=== PATIENT | male | born 1995 | race Caucasian/White ===

== ENCOUNTER 2025-06-16 08:20 | Outpatient (CLI) | payer BC, SELFPAY ==
--- OUTSIDE RECORDS SUMMARY | 2025-06-16 08:24 | XMS_ITS | Clinical Summary ---
Author Organization [facility] Address [address] [place] [id number] Care Team Providers Care Animal Services Officer Name Role Phone None, Provider MD Primary Care Provider Unavaila ble Allergies No known active allergies Social History Tobacco Use Types Packs/Day Years Used Date Smoking Tobacco: Never Assessed Sex and Gender Information Value Date Recorded Sex Assigned at Not on file Legal Sex Male 2:07 PM CDT Gender Identity Not on file Sexual Orientation Not on file Last Filed Vital Signs Vital Sign Reading Time Taken Comments Blood Pressure 118/77 05/02/2022 7:47 PM CDT Pulse 82 05/02/2022 7:47 PM CDT Temperature 37.1 C (98.8 F) 05/02/2022 7:47 PM CDT Respiratory Rate 18 05/02/2022 7:47 PM CDT Oxygen Saturation 100% 05/02/2022 7:47 PM CDT Inhaled Oxygen Concentration - - Weight 65.3 kg (144 lb) 05/02/2022 7:47 PM CDT Height 177.8 cm (5' 10) 05/02/2022 7:47 PM CDT Body Mass Index 20.66 05/02/2022 7:47 PM CDT Plan of Treatment Health Maintenance Due Date Last Done Comments Annual Physical 2000 DTaP, Tdap and Td Vaccines (6 - Tdap) 2008 12/13/2002, 03/22/1999, 03/29/1998, Additional history exists Hepatitis C 2015 Hepatitis B Vaccines (1 of 3 - 19+ 3-dose series) 2016 COVID-19 Vaccine (2023- season) 2024 HPV Vaccines (1 - 3-dose SCDM series) 2024 Meningococcal B Vaccine Aged Out No l onger eligible based on patient's age to complete this topic Meningococcal Vaccine Aged Out No reji lilly eligible based on patient's age to complete this topic Pneumococcal Vaccine: Pediatrics (0 to 5 Years) and At-Risk Patients (6 to 49 Years) Aged Out No longer eligible based on patient's age to complete this topic RSV Immunizations Under 20 Months Aged Out No longer eligible based on patient's age to complete this topic Insurance [facility] Care Teams Animal Services Officer Relationship Specialty Start Date End Date None, Provider, PCP - General 03/05/21
--- OUTSIDE RECORDS SUMMARY | 2025-06-16 08:24 | XMS_ITS | Clinical Summary ---
Author Organization [facility] Address [address] [place] [phone] Care Team Providers Care Keller Machine Operator Name Role Phone Maya Souza MD Primary Care Provider + Allergies No known active allergies Medications No known medications Active Problems No known active problems Social History Tobacco Use Types Packs/Day Years Used Date Smoking Tobacco: Never Smokeless Tobacco: Never Tobacco Cessation:Counseling Given: Not Answered AUDIT-C Answer Date Recorded Q1: How often do you have a drink containing alcohol? Never 10/21/2024 Q2: How many drinks containi ng alcohol do you have on a typical day when you are drinking? Patient does not drink Q3: How often do you have si x or more drinks on one occasion? 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 Gender Identity Not on file Sexual Orientation Not on file Obstetrics History Last Filed Vital Signs Vital Sign Reading Time Taken Comments Blood Pressure - - Pulse - - Temperature - - Respiratory Rate - - Oxygen Saturation - - Inhaled Oxygen Concentration - - Weight 66.7 kg (147 lb) 10/21/2024 2:21 PM DISTILLERY SUPERVISOR Height 180.3 cm (5' 11) 10/21/2024 2:21 PM DISTILLERY SUPERVISOR Body Mass Index 20.5 10/21/2024 2:21 PM DISTILLERY SUPERVISOR Plan of Treatment Health Maintenance Due Date Last Done Comments Depression Screening 1997 Hepatitis C Screening 1997 Regular Well Visit/Exam 18-64 2015 HPV Vaccines (1 - 3-dose SCDM series) 2024 Influenza Vaccine (#1) 2025 DTaP/Tdap/Td Vaccine (9 - Td or Tdap) 02/19/2034 02/20/2024, 08/23/2012, 07/20/2009, Additional history exists Hepatitis B Screening Completed 03/29/1998 , 1997, 1997 Varicella Vaccines Completed 07/20/2002, 12/06/1998 Pneumococcal vaccine <65 Aged Out No longer eligible based on patient's age to complete this topic Insurance [employer] OOS Care Teams Keller Machine Operator Relationship Specialty Start Date End Date Maya Souza MD [facility] [facility] [address] [place] [id number] PCP - General Family Medicine 10/05/24
[2025-06-16 13:08] LABS: Hematocrit 42.1 % (42.0-52.0); Hemoglobin 13.9 g/dL (14.0-18.0); Immature Granulocyte Percent A 0.2 % (0-0.5); Lymphocytes Absolute Auto 1.92 K/mm3 (0.9-3.2); Mean Corpuscular HGB Conc 33.0 g/dl (32-36); Mean Corpuscular Hemoglobin 29.6 pg (26-34); Mean Corpuscular Volume 89.6 fl (80-100); Nucleated Red Blood Cells Absolute Auto 0.000 K/mm3 (0.0-0.012); Nucleated Red Blood Cells Perc 0.0 % (0.0-0.2); Platelet Count Result 208 k/mm3 (150-375); Red Blood Count 4.70 M/mm3 (4.6-6.20); White Blood Count 5.7 K/mm3 (4.5-10.0)
[2025-06-16 13:28] LABS: Alanine Aminotransferase 19 U/L (6-50); Albumin Level 4.8 g/dL (3.5-5.1); Alkaline Phosphatase 57 U/L (38-126); Anion Gap 11 mmol/L (4-12); Aspartate Amino Transferase 46 U/L (17-59); Bilirubin,Total 0.9 mg/dL (0.2-1.3); Blood Urea Nitrogen 18 mg/dL (9-20); Calcium 9.6 mg/dL (8.4-10.2); Carbon Dioxide 25 mmol/L (22-30); Chloride 105 mmol/L (98-107); Cholesterol 129 mg/dL (0-200); Estimated Glomerular Filt Rate > 60; Glucose 58 mg/dL (65-110); HDL Direct 52 mg/dL; Potassium 4.2 mmol/L (3.4-5.0); Sodium 141 mmol/L (137-145); Total Protein 7.5 g/dL (6.3-8.2); Triglycerides 46 mg/dL (<150)
[2025-06-16 14:04] LABS: Thyroid Stimulating Hormone 0.979 uIU/mL (0.465-4.680)
[2025-06-17 07:09] LABS: LH 6.9 mIU/mL (1.7-8.6)
== END 2025-06-16 08:21 | disposition home or self-care (01) ==
LOC: ANHGOSHLAB 08:21
PROVIDERS: PCP Family Medicine; Visit Provider Family Medicine
DX: Z00.00 Encounter for general adult medical examination without abnormal findings (principal); R53.83 Other fatigue; R68.82 Decreased libido
CPT/HCPCS: 36415; 80053; 80061; 83002; 84443; 85025

== ENCOUNTER 2025-06-23 07:50 | Outpatient (CLI) | payer BC, SELFPAY ==
--- OUTSIDE RECORDS SUMMARY | 2025-06-23 07:54 | XMS_ITS | Clinical Summary ---
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 Gender Identity Not on file Sexual Orientation Not on file Obstetrics History Last Filed Vital Signs Vital Sign Reading Time Taken Comments Blood Pressure - - Pulse - - Temperature - - Respiratory Rate - - Oxygen Saturation - - Inhaled Oxygen Concentration - - Weight 66.7 kg (147 lb) 10/21/2024 2:21 PM PATTERNMAKER PLASTER Height 180.3 cm (5' 11) 10/21/2024 2:21 PM PATTERNMAKER PLASTER Body Mass Index 20.5 10/21/2024 2:21 PM PATTERNMAKER PLASTER Plan of Treatment Health Maintenance Due Date [...] patient's age to complete this topic Insurance [employer] O[employer] Care Teams Assistant Football Coach Relationship Specialty Start Date End Date Maya Souza MD [facility] [address] [place] [id number] PCP - General Family Medicine 10/05/24
--- OUTSIDE RECORDS SUMMARY | 2025-06-23 07:54 | XMS_ITS | Clinical Summary ---
Author Organization [facility] Address [address] [place] [id number] Care Team Providers Care Product Development Coordinator Name Role Phone None, Provider MD Primary [...] patient's age to complete this topic Insurance [facility] Care Teams Product Development Coordinator Relationship Specialty Start Date End Date None, Provider, PCP - General 03/05/21
[2025-06-30 02:07] LABS: Free Testosterone (Direct) 6.8 pg/mL (9.3-26.5)
== END 2025-06-23 07:51 | disposition home or self-care (01) ==
LOC: ANHGOSHLAB 07:51
PROVIDERS: PCP Family Medicine; Visit Provider Family Medicine
DX: R53.83 Other fatigue (principal)
CPT/HCPCS: 84402; 84403